=== PATIENT | male | born 1955 | race Two or more races ===

== ENCOUNTER 2023-10-08 12:30 | Inpatient (IN) | payer BC, MEDICAID ==
[~2023-10-08] VITALS: Ht 175.3 cm; Wt 67.7 kg
[2023-10-08] VITALS (32 sets, daily range): BP systolic 105–146; BP diastolic 48–113; PULSE 64–114; RESP 18–31; TEMP 97.5–98.2; O2SAT 83–100
[2023-10-08] MEDS: HEPARIN 1,000 UNITS/ml 1ML VIAL IV ONE (12:45)
[2023-10-08] MEDS: CLOPIDOGREL BISULFATE 75 MG TAB PO ONE (12:50)
[2023-10-08] MEDS: CLOPIDOGREL BISULFATE 75 MG TAB ONE (12:54)
[2023-10-08] MEDS: HEPARIN SODIUM (PORCINE) 5000 UNITS/ML 1ML VIAL ONE (12:54)
[2023-10-08] MEDS: ASPirin 81 mg TAB PO ONE (12:54)
[2023-10-08] MEDS ORDERED: MORPHINE SULFATE INJ 2 MG/ml SYRG IV PRN ×3 (13:00→13:30)
[2023-10-08] MEDS: IODIXANOL 320MG/ML 100ML BTL IV ONE ×2 (13:06→13:59)
[2023-10-08] MEDS: HEPARIN IN NS 1000Units/500mL 1,500 ML ONE (13:06)
[2023-10-08] MEDS: LIDOCAINE 2%HCL (LOCAL ANESTH.) INJ 20ML MDV ONE (13:06)
[2023-10-08] MEDS: IOHEXOL 350 MG/ML 100ML IJ ONE (13:06)
[2023-10-08 13:08] LABS: Basophils # (auto) 0 10 ^3/uL (0-0.2); Basophils % (auto) 0.3 % (0.0-2.0); Lymphocytes # (auto) 1.1 10 ^3/uL (0.4-5.4); White Blood Cell 10.2 10^3/uL (4.4-10.8)
[2023-10-08] MEDS: ANGIOMAX 250 MG VIAL IV ONE ×2 (13:08→14:29)
[2023-10-08] MEDS: SODIUM CHL 0.9% 50 ML ONE ×2 (13:09→14:29)
[2023-10-08] MEDS: fentaNYL CITRATE 100 MCG/2 ML VL ONE (13:09)
[2023-10-08] MEDS: MIDAZOLAM HCL 2MG/2ML 2ml VIAL (1mg/ml) ONE (13:09)
[2023-10-08 13:11] LABS: Eosinophils # (auto) 0.1 10 ^3/uL (0-0.8); Eosinophils % (auto) 0.6 % (0.0-7.0); Lymphocytes % (auto) 11.2 % (10.0-50.0); Mean Corpuscular Hemoglobin 25.7 pg (28.0-32.0); Mean Corpuscular Hgb Conc. 33.2 g/dL (32.0-36.0); Mean Corpuscular Volume 77.4 fL (80.0-100.0); Monocytes % (auto) 9.8 % (0.0-12.0); Neutrophils # (auto) 7.9 10 ^3/uL (1.6-8.6); Neutrophils % (auto) 78.1 % (37.0-80.0); Red Blood Cells 3.87 10^6/uL (4.5-5.90); Red Cell Distribution Width 18.4 % (11.8-14.3)
[2023-10-08] MEDS: VERAPAMIL 2.5MG/ML INJ 2ML VIAL IV ONE (13:14)
[2023-10-08] MEDS ORDERED: ATORVASTATIN 20 MG TAB PO ONE (13:15)
[2023-10-08] MEDS ORDERED: ACETAMINOPHEN 325 MG TAB PO PRN (13:15)
[2023-10-08] MEDS ORDERED: NITROGLYCERIN 0.4 MG SL TAB SL PRN ×3 (13:15→13:30)
[2023-10-08] MEDS ORDERED: LORazepam 2MG/ML-1ML VIAL IV PRN ×3 (13:15→13:30)
[2023-10-08] MEDS ORDERED: chlordiazePOXIDE HCL 25 MG CAP PO SCH (13:15)
[2023-10-08] MEDS ORDERED: ONDANSETRON HCL 4 MG/2 ML VIAL IV PRN ×2 (13:15→13:30)
[2023-10-08] MEDS ORDERED: MORPHINE SULFATE 4 MG/ML SYR/VIAL IV PRN (13:15)
[2023-10-08] MEDS: NITROGLYCERIN 50MG/250ML 250 ML IV ONE (13:16)
[2023-10-08 13:32] LABS: Alanine Aminotransferase 9 U/L (7-40); Albumin 4.4 g/dL (3.2-4.8); Alkaline Phosphatase 70 U/L (46-116); Anion Gap 13 (5-15); Aspartate Aminotransferase 19 U/L (13-40); BUN/Creatinine Ratio 14.4 (10.0-20.0); Bilirubin, Total 0.3 mg/dL (0.2-1.0); Blood Urea Nitrogen 17 mg/dL (9-23); Calcium 9.4 mg/dL (8.7-10.4); Carbon Dioxide 17 mmol/L (20-30); Chloride 108 mmol/L (98-107); Glucose 106 mg/dL (74-106); Magnesium 1.6 mg/dL (1.6-2.6); Potassium 3.9 mmol/L (3.5-5.1); Sodium 138 mmol/L (136-145); Total Protein 6.9 g/dL (5.7-8.2)
[2023-10-08 13:33] LABS: Triglycerides 105 mg/dL (< 150)
[2023-10-08 13:34] LABS: LDL Cholesterol 68 mg/dL (< 100)
[2023-10-08 13:35] LABS: Cholesterol 127 mg/dL (< 200); HDL Cholesterol 48 mg/dL (40-59)
[2023-10-08 13:52] LABS: INR 1.13 (0.9-1.15); Prothrombin Time 11.9 sec (9.3-11.8)
[2023-10-08] MEDS: ATROPINE SULF 1 MG/10ml SYR ONE (13:59)
[2023-10-08] MEDS: chlordiazePOXIDE HCL 25 MG CAP PO SCH (15:48)
[2023-10-08] MEDS: ATORVASTATIN 20 MG TAB PO ONE (18:00)
[2023-10-08] MEDS: NITROGLYCERIN 0.4 MG SL TAB SL PRN (20:08)
[2023-10-08] MEDS: MORPHINE SULFATE 4 MG/ML SYR/VIAL IV PRN (20:09)
[2023-10-08] MEDS ORDERED: ATORVASTATIN 20 MG TAB PO SCH (22:00)
[2023-10-08] MEDS: ALBUTEROL SULF 2.5 MG/0.5ML(0.5%) NEB SOLN NEB SCH (23:05)
[2023-10-08] MEDS: BUDESONIDE (INHALATION) 0.5 MG/2 ML NEB NEB SCH (23:05)
[2023-10-08] MEDS: IPRATROPIUM BROM 0.5 MG/2.5ML INH SOL NEB SCH (23:05)
[2023-10-09] VITALS (44 sets, daily range): BP systolic 99–130; BP diastolic 44–73; PULSE 69–94; RESP 15–29; TEMP 97.7–98.6; O2SAT 78–100
[2023-10-09 03:06] LABS: Base Excess -4.2 mmol/L (-2.0-2.0)
[2023-10-09 05:16] LABS: Basophils # (auto) 0 10 ^3/uL (0-0.2); Eosinophils # (auto) 0.1 10 ^3/uL (0-0.8); Lymphocytes # (auto) 0.9 10 ^3/uL (0.4-5.4); Monocytes # (auto) 0.7 10 ^3/uL (0-1.3)
[2023-10-09 05:17] LABS: Basophils % (auto) 0.4 % (0.0-2.0); Eosinophils % (auto) 0.9 % (0.0-7.0); Hematocrit 27.5 % (41.0-53.0); Hemoglobin 9.2 g/dL (13.5-17.5); Lymphocytes % (auto) 10.8 % (10.0-50.0); Mean Corpuscular Hgb Conc. 33.6 g/dL (32.0-36.0); Mean Corpuscular Volume 77.4 fL (80.0-100.0); Monocytes % (auto) 8.1 % (0.0-12.0); Neutrophils # (auto) 6.8 10 ^3/uL (1.6-8.6); Neutrophils % (auto) 79.8 % (37.0-80.0); Red Blood Cells 3.55 10^6/uL (4.5-5.90); Red Cell Distribution Width 18.5 % (11.8-14.3); White Blood Cell 8.5 10^3/uL (4.4-10.8)
[2023-10-09 05:39] LABS: Alanine Aminotransferase 16 U/L (7-40); Albumin 4.1 g/dL (3.2-4.8); Alkaline Phosphatase 67 U/L (46-116); Anion Gap 6 (5-15); Aspartate Aminotransferase 75 U/L (13-40); BUN/Creatinine Ratio 12.7 (10.0-20.0); Blood Urea Nitrogen 15 mg/dL (9-23); Calcium 8.9 mg/dL (8.5-10.1); Carbon Dioxide 23 mmol/L (20-30); Chloride 108 mmol/L (98-107); Glucose 124 mg/dL (74-106); LDL Cholesterol 68 mg/dL (< 100); Potassium 4.5 mmol/L (3.5-5.1); Sodium 137 mmol/L (136-145); Triglycerides 117 mg/dL (< 150)
[2023-10-09 05:40] LABS: Bilirubin, Total 0.3 mg/dL (0.2-1.0); Cholesterol 128 mg/dL (< 200); HDL Cholesterol 41 mg/dL (40-59); Total Protein 6.8 g/dL (5.7-8.2)
[2023-10-09] MEDS: FUROSEMIDE 40 MG/4 ML VIAL IV ONE (07:31)
[2023-10-09] MEDS: DOCUSATE SOD 100 MG CAP PO SCH (07:32)
[2023-10-09] MEDS: ASPirin 81 mg TAB PO SCH (07:32)
[2023-10-09] MEDS: CLOPIDOGREL BISULFATE 75 MG TAB PO SCH (07:32)
[2023-10-09] MEDS: MULTIPLE VITAMINS W/ MINERALS TAB PO ONE (08:15)
[2023-10-09] MEDS: THIAMINE HCL 100 MG TAB PO ONE (08:45)
[2023-10-09] MEDS: FOLIC ACID 1 MG TAB PO ONE (08:45)
[2023-10-09] MEDS: MAGNESIUM SULFATE 1GM/100ML 100 ML IV ONE (08:45)
[2023-10-09] MEDS ORDERED: chlordiazePOXIDE HCL 25 MG CAP PO SCH ×2 (10:00)
[2023-10-09] MEDS ORDERED: ASPirin 81 mg TAB PO SCH (10:00)
[2023-10-09] MEDS ORDERED: DOCUSATE SOD 100 MG CAP PO SCH (10:00)
[2023-10-09] MEDS ORDERED: CLOPIDOGREL BISULFATE 75 MG TAB PO SCH (10:00)
[2023-10-09] MEDS: SACUBITRIL-VALSARTAN 24mg/26mg TAB PO SCH (10:38)
[2023-10-09] MEDS: METOPROLOL TARTRATE 25 MG TAB PO SCH (10:38)
[2023-10-09] MEDS: EMPAGLIFLOZIN 10 MG TAB PO SCH (10:38)
[2023-10-09 11:46] LABS: Amphetamine Screen, Urine Neg (NEGATIVE); Barbiturate Scree,Urine Neg (NEGATIVE); Benzodiazephine Screen, Urine Pos (NEGATIVE); Cannabinoid Screen, Urine Neg (NEGATIVE); Cocaine Screen, Urine Neg (NEGATIVE); Opiate Scree,Urine Neg (NEGATIVE); Phencyclidine Screen, Urine Neg (NEGATIVE)
[2023-10-09] MEDS: FUROSEMIDE INJECTION 100 MG in D5W 5% 100 ML IV SCH (12:09)
[2023-10-09] MEDS: LIDOCAINE 1% (LOCAL ANESTH.) PF 5ml SDV ID ONE (12:30)
[2023-10-09] MEDS ORDERED: guaiFENesin-CODEINE Liq 5 ML UD PO PRN (16:00)
[2023-10-09 16:27] LABS: Base Excess 1.2 mmol/L (-2.0-2.0)
[2023-10-09] MEDS ORDERED: LISI40TA16 PO (17:46)
[2023-10-09] MEDS ORDERED: NIFE90TA75 PO (17:46)
[2023-10-09] MEDS ORDERED: ATEN100T PO (17:46)
[2023-10-09] MEDS ORDERED: NICO1DIS30 TD (17:46)
[2023-10-09] MEDS ORDERED: PANT40TA2 PO (17:46)
[2023-10-09] MEDS ORDERED: FUROSEMIDE 40 MG/4 ML VIAL IV SCH (18:00)
[2023-10-09] MEDS: ATORVASTATIN 20 MG TAB PO SCH (21:46)
[2023-10-09] MEDS: SODIUM CHLOR 0.9% PF (SALINE LOCK) 10ML VIAL/SYR IV SCH (22:00)
[2023-10-10] VITALS (34 sets, daily range): BP systolic 66–131; BP diastolic 24–76; PULSE 66–93; RESP 16–28; TEMP 97.9–99.1; O2SAT 86–99
[2023-10-10 07:17] LABS: Anion Gap 14 (5-15); Calcium 9.6 mg/dL (8.7-10.4); Carbon Dioxide 23 mmol/L (20-30); Chloride 100 mmol/L (98-107); Potassium 3.8 mmol/L (3.5-5.1); Sodium 137 mmol/L (136-145)
[2023-10-10 07:20] LABS: Basophils # (auto) 0 10 ^3/uL (0-0.2); Eosinophils # (auto) 0.3 10 ^3/uL (0-0.8); Hemoglobin 11.1 g/dL (13.5-17.5); Lymphocytes # (auto) 0.9 10 ^3/uL (0.4-5.4); Monocytes # (auto) 0.6 10 ^3/uL (0-1.3)
[2023-10-10 07:21] LABS: Basophils % (auto) 0.6 % (0.0-2.0); Eosinophils % (auto) 4.3 % (0.0-7.0); Hematocrit 33.9 % (41.0-53.0); Mean Corpuscular Hemoglobin 25.2 pg (28.0-32.0); Mean Corpuscular Hgb Conc. 32.6 g/dL (32.0-36.0); Mean Corpuscular Volume 77.3 fL (80.0-100.0); Monocytes % (auto) 8.4 % (0.0-12.0); Neutrophils # (auto) 5.4 10 ^3/uL (1.6-8.6); Neutrophils % (auto) 74.7 % (37.0-80.0); Red Blood Cells 4.39 10^6/uL (4.5-5.90); Red Cell Distribution Width 18.8 % (11.8-14.3); White Blood Cell 7.2 10^3/uL (4.4-10.8)
[2023-10-10 07:22] LABS: Glucose 112 mg/dL (74-106)
[2023-10-10 07:23] LABS: BUN/Creatinine Ratio 12.1 (10.0-20.0); Blood Urea Nitrogen 14 mg/dL (9-23)
[2023-10-10] MEDS: chlordiazePOXIDE HCL 25 MG CAP PO SCH (09:04)
[2023-10-10] MEDS ORDERED: chlordiazePOXIDE HCL 25 MG CAP PO SCH (10:00)
[2023-10-10] MEDS: SPIRONOLACTONE 25 MG TAB PO ONE (10:20)
[2023-10-11] VITALS (31 sets, daily range): BP systolic 81–124; BP diastolic 45–79; PULSE 67–103; RESP 15–26; TEMP 97.4–98.7; O2SAT 85–99
[2023-10-11] MEDS: ACETAMINOPHEN 325 MG TAB PO PRN (02:22)
[2023-10-11] MEDS ORDERED: chlordiazePOXIDE HCL 25 MG CAP PO SCH ×2 (07:00)
[2023-10-11] MEDS: LORazepam 2MG/ML-1ML VIAL IV PRN (07:54)
[2023-10-11] MEDS: HYDROcodone-ACET 10/325MG TAB PO PRN (09:52)
[2023-10-11] MEDS: SPIRONOLACTONE 25 MG TAB PO SCH (09:53)
[2023-10-12] VITALS (13 sets, daily range): BP systolic 100–139; BP diastolic 61–76; PULSE 64–83; RESP 15–20; TEMP 97.6–98.2; O2SAT 91–98
[2023-10-12 05:55] LABS: Basophils # (auto) 0.1 10 ^3/uL (0-0.2); Eosinophils # (auto) 0.4 10 ^3/uL (0-0.8); Lymphocytes # (auto) 1.5 10 ^3/uL (0.4-5.4); Monocytes # (auto) 0.9 10 ^3/uL (0-1.3)
[2023-10-12 05:58] LABS: Eosinophils % (auto) 5.6 % (0.0-7.0); Hematocrit 36.2 % (41.0-53.0); Hemoglobin 12.1 g/dL (13.5-17.5); Lymphocytes % (auto) 19.3 % (10.0-50.0); Mean Corpuscular Hemoglobin 25.6 pg (28.0-32.0); Mean Corpuscular Hgb Conc. 33.3 g/dL (32.0-36.0); Mean Corpuscular Volume 76.7 fL (80.0-100.0); Neutrophils # (auto) 4.8 10 ^3/uL (1.6-8.6); Neutrophils % (auto) 62.1 % (37.0-80.0); Red Blood Cells 4.72 10^6/uL (4.5-5.90); Red Cell Distribution Width 18.4 % (11.8-14.3); White Blood Cell 7.7 10^3/uL (4.4-10.8)
[2023-10-12 06:12] LABS: Chloride 100 mmol/L (98-107); Potassium 3.6 mmol/L (3.5-5.1); Sodium 137 mmol/L (136-145)
[2023-10-12 06:13] LABS: Anion Gap 9 (5-15); Carbon Dioxide 28 mmol/L (20-30)
[2023-10-12 06:14] LABS: Calcium 9.8 mg/dL (8.5-10.1)
[2023-10-12 06:18] LABS: Glucose 111 mg/dL (74-106)
[2023-10-12 06:19] LABS: BUN/Creatinine Ratio 26.2 (10.0-20.0)
[2023-10-12 06:22] LABS: Blood Urea Nitrogen 34 mg/dL (9-23)
[2023-10-13] VITALS (18 sets, daily range): BP systolic 108–142; BP diastolic 58–71; PULSE 65–84; RESP 16–22; TEMP 97.8–98; O2SAT 90–98
[2023-10-13] MEDS: FUROSEMIDE 20 MG TAB PO SCH (10:11)
[2023-10-13] MEDS ORDERED: MET25T PO (16:29)
[2023-10-13] MEDS ORDERED: SPIR25TA PO (16:29)
[2023-10-13] MEDS ORDERED: EMPA1TAB PO (16:29)
[2023-10-13] MEDS ORDERED: ASPI-325 PO (16:29)
[2023-10-13] MEDS ORDERED: SACU1TAB PO (16:29)
[2023-10-13] MEDS ORDERED: ATOR20TA50 PO (16:29)
[2023-10-13] MEDS ORDERED: FUR20T PO (16:29)
[2023-10-13] MEDS ORDERED: CLOP75TA70 PO (16:29)
[2023-10-14] VITALS (21 sets, daily range): BP systolic 104–147; BP diastolic 54–70; PULSE 63–89; RESP 17–22; TEMP 36.3; O2SAT 90–98
[2023-10-14] MEDS: POTASSIUM CHL 20 Meq TABLET PO PRN (09:31)
[2023-10-15] VITALS (10 sets, daily range): BP systolic 102–120; BP diastolic 54–59; PULSE 62–86; RESP 18–21; TEMP 97.4–97.6; O2SAT 21–98
== END 2023-10-15 13:25 | disposition home or self-care (01) | DRG 250 ==
LOC: ER 12:30 → EDBD 12:30 → ER 13:11 → TELE 13:11 → DOU IN ICU 17:04 → TELE-WESTW 10-11 18:21
PROVIDERS: ADMIT Nurse Practitioner Family; ATTEND Internal Medicine
PROC: 02703ZZ Dilation of Coronary Artery, One Artery, Percutaneous Approach (ICD-10-PCS; principal; 2023-10-08)
PROC: 4A023N7 Measurement of Cardiac Sampling and Pressure, Left Heart, Percutaneous Approach (ICD-10-PCS; 2023-10-08)
PROC: B211YZZ Fluoroscopy of Multiple Coronary Arteries using Other Contrast (ICD-10-PCS; 2023-10-08)
PROC: 5A09357 Assistance with Respiratory Ventilation, Less than 24 Consecutive Hours, Continuous Positive Airway Pressure (ICD-10-PCS; 2023-10-09)
PROC: 5A0935A Assistance with Respiratory Ventilation, Less than 24 Consecutive Hours, High Flow/Velocity Cannula (ICD-10-PCS; 2023-10-09)
PROC: 02HV33Z Insertion of Infusion Device into Superior Vena Cava, Percutaneous Approach (ICD-10-PCS; 2023-10-09)
PROC: B548ZZA Ultrasonography of Superior Vena Cava, Guidance (ICD-10-PCS; 2023-10-09)
PROC: 5A0935A Assistance with Respiratory Ventilation, Less than 24 Consecutive Hours, High Flow/Velocity Cannula (ICD-10-PCS; 2023-10-10)
PROC: 5A0935A Assistance with Respiratory Ventilation, Less than 24 Consecutive Hours, High Flow/Velocity Cannula (ICD-10-PCS; 2023-10-11)
PROC: 5A0935A Assistance with Respiratory Ventilation, Less than 24 Consecutive Hours, High Flow/Velocity Cannula (ICD-10-PCS; 2023-10-12)
PROC: 5A0935A Assistance with Respiratory Ventilation, Less than 24 Consecutive Hours, High Flow/Velocity Cannula (ICD-10-PCS; 2023-10-13)
DX: I21.19 ST elevation (STEMI) myocardial infarction involving other coronary artery of inferior wall (principal); I25.42 Coronary artery dissection; J96.01 Acute respiratory failure with hypoxia; I50.23 Acute on chronic systolic (congestive) heart failure; J81.1 Chronic pulmonary edema; E87.4 Mixed disorder of acid-base balance; Z59.00 Homelessness unspecified; I11.0 Hypertensive heart disease with heart failure; I25.10 Atherosclerotic heart disease of native coronary artery without angina pectoris; D64.9 Anemia, unspecified; F41.9 Anxiety disorder, unspecified; R73.03 Prediabetes; F10.129 Alcohol abuse with intoxication, unspecified; Y90.9 Presence of alcohol in blood, level not specified; I08.1 Rheumatic disorders of both mitral and tricuspid valves; Z87.891 Personal history of nicotine dependence; I34.0 Nonrheumatic mitral (valve) insufficiency
CPT/HCPCS: 36415; 36569; 36600; 71045; 76937; 80048; 80053; 80061; 80307; 80320; 82805; 83036; 83735; 83880; 84443; 84484; 85025; 85610; 87081; 87086; 93306; 94640; 94660; 99152; 99291; C1769; C1887; G0378; J2250; J7060; Q9967